=== PATIENT | male | born 1990 | race Hispanic/Latino ===

== ENCOUNTER 2018-01-10 19:47 | Emergency (ER) | payer OTHER ==
[2018-01-10 19:54] VITALS: BP 145/77; RESP 16; TEMP 98.6; O2SAT 99
--- NOTE | 2018-01-10 21:03 | ED PDOC ---
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 Patient states he is unable to straigten it out but feels no pain. He does deny experiencing any numbness or tingling. PMD: No provider Past Medical History Reviewed: Historical Data, Nursing Documentation, Vital Signs Vital Signs: Last Vital Signs Temp 98.6 F 01/10/18 19:51 Pulse 105 H 01/10/18 19:51 Resp 16 01/10/18 19:51 BP 145/77 01/10/18 19:51 Pulse Ox 99 01/10/18 19:51 - Medical History PMH: No Chronic Diseases - Surgical History Other surgeries: Right hand 4th finger - Family History Family History: States: Unknown Family Hx - Allergies Allergies/Adverse Reactions: Allergies Allergy/AdvReac Type Severity Reaction Status Date / Time No Known Allergies Allergy Verified 01/10/18 19:49 Review of Systems ROS Statement: Except As Marked, All Systems Reviewed And Found Negative Musculoskeletal: Negative for: Other (straighten right middle finger out) Neurological: Negative for: Numbness, Other (tingling ) Physical Exam - Reviewed Nursing Documentation Reviewed: Yes Vital Signs Reviewed: Yes - Physical Exam Appears: Positive for: Well Head Exam: Positive for: ATRAUMATIC, NORMOCEPHALIC Skin: Positive for: Normal Color, Warm, Dry Eye Exam: Positive for: Normal appearance Cardiovascular/Chest: Positive for: Other Pulses-Radial (L): 2+ Pulses-Radial (R): 2+ Extremity: Positive for: Other (right 3rd digit at DIP is in flexion; unable to actively extend L 3rd finger). Negative for: Normal ROM, Tenderness, Deformity, Swelling Neurologic/Psych: Positive for: Alert, Oriented (x3) - ECG O2 Sat by Pulse Oximetry: 99 (RA) Pulse Ox Interpretation: Normal - Radiology X-Ray: Interpreted by Me (L 3rd xray) X-Ray Interpretation: No Acute Disease - Progress ED Course And Treament: Finger immobilized in aluminum finger splint - DIP helped in extension. Case d/w Dr. Loyola, hand communications engineering technician, who agrees with care and states pt. can f/u in his office on Tuesday. Pt. informed of plan. Verbalized understanding and will f/u with Dr. Loyola. Medical Decision Making Medical Decision Making: Initial Time: 20:11 Initial Plan: --Hand right 3rd digit finger X-ray Scribe Attestation: Documented by Eddie Clark, acting as a scribe for Chris Castano Provider Scribe Attestation: All medical record entries made by the Scribe were at my direction and personally dictated by me. I have reviewed the chart and agree that the record accurately reflects my personal performance of the history, physical exam, medical decision making, and the department course for this patient. I have also personally directed, reviewed, and agree with the discharge instructions and disposition. Disposition - Clinical Impression Clinical Impression: Rupture of tendon of finger - Patient ED Disposition Is Patient to be Admitted: No - Disposition Referrals: Myles Loyola MD [Medical Doctor] - Disposition: Routine/Home Disposition Time: 21:02 Condition: GOOD Additional Instructions: LEOBARDO BEAN, thank you for letting us take care of you today. Your provider was Marv Dee MD and you were treated for RT FINGER INJURY. The emergency medical care you received today was directed at your acute symptoms. If you were prescribed any medication, please fill it and take as directed. It may take several days for your symptoms to resolve. Return to the Emergency Department if your symptoms worsen, do not improve, or if you have any other problems. Please contact your doctor or call one of the physicians/clinics you have been referred to that are listed on the Patient Visit Information form that is included in your discharge packet. Bring any paperwork you were given at discharge with you along with any medications you are taking to your follow up visit. Our treatment cannot replace ongoing medical care by a primary care provider outside of the emergency department. Thank you for allowing the [facility] team to be part of your care today. If you had an X-Ray or CT scan: A Radiologist will review the ED reading if any change in treatment is needed we will contact you. If you had a blood, urine, or wound culture: It will take several days for the results, if any change in treatment is needed we will contact you. If you had an STI test: It will take 48 hours for the results. Please call after 1 week if you have not heard back. Instructions: Tendon Laceration (DC), Common Finger Injuries (DC) Forms: [facility] (K[place]akh) Print Language: L[place]ISH
[2018-01-10 21:11] VITALS: PULSE 97
--- NOTE | 2018-01-11 10:18 | RAD ---
Date of service: 01/10/2018 PROCEDURE: Right middle finger radiographs. HISTORY: DIP deformity COMPARISON: None. TECHNIQUE: AP radiograph of the right hand, as well as spot oblique and lateral images of right middle finger were obtained. FINDINGS: RIGHT MIDDLE FINGER: Right middle finger normal, without acute fracture of focal lesion. Remainder of the right hand (as seen on the AP view) grossly unremarkable. JOINTS: There is mild flexion deformity at the 3rd distal interphalangeal joint. No evidence of periarticular erosion or calcification. The joint spaces are maintained. SOFT TISSUES: Normal. OTHER FINDINGS: None. IMPRESSION: No acute fracture or dislocation. Mild flexion deformity in the distal interphalangeal joint of the 3rd digit.
== END 2018-01-10 21:12 | disposition home or self-care (01) ==
LOC: H.ER 19:47
DX: S56.113A Strain of flexor muscle, fascia and tendon of right middle finger at forearm level, initial encounter (principal); Y93.67 Activity, basketball